=== PATIENT | male | born 1955 | race Caucasian/White ===

== ENCOUNTER → 2022-06-11 | Outpatient (CLI) | payer BC, SELFPAY ==
--- NOTE | 2022-06-11 | IMM_PTH ---
PATIENT: JELENA HARRIS LOC: [facility] U#:[id number] AGE/SX: 66/M ROOM: RE06/11/[address]: Dr. Donaldo Nielsen MD : 1955 BED: DIS: 06/11/2022 SPEC #: [id number] RECD: 06/13/22 14:42 STATUS: SOUJuan REQ #: [id number] JOANA: 06/11/22 00:[address]: Donaldo Nielsen DEPT: IMMUNOHISTOCHEMISTRY RECD BY: Michelle Rudolph ENTERED: 06/13/22 14:43 SP TYPE: IMMUNO OTHR DR: Dr. Chico Franks MD Tissues: A - PROSTATE RIGHT D - PROSTATE LEFT E - PROSTATE LEFT Procedures: 34BE12 (add) P40 (add) 34BE12 (initial) PHYSICIAN & INSTITUTION [place] [address] SPECIMEN INFORMATION: Tissue Source: A - Right prostate, apex, D - Left prostate, apex, E - Left prostate, mid Clinical Info: Elevated PSA Specimen Number: [id number] A, D & E CPT code: 06184, 94779 x5 METHODOLOGY: Deparaffinized sections of prefer/formalin-fixed tissue or PAP/DQ stained slides are incubated with monoclonal/polyclonal antibodies/oligonucleotide probes. Localization is made via biotin free immunoperoxidase method. Appropriate controls are performed and reacted as expected. Results on target cell population are indicated in the following table: RESULTS: ANTIBODY / CLONE RESULT Block A P40 (BC28) positive 34BE12 (34BE12) positive Block D P40 (BC28) positive 34BE12 (34BE12) positive Block E P40 (BC28) negative 34BE12 (34BE12) negative These tests were developed and their performance characteristics determined by [facility]. They may not have been cleared or approved by the U.S. Food and Drug Administration. The FDA has determined that such clearance or approval is not necessary. The above immunohistochemical/dualISH markers are ordered and reviewed by the Pathologist. INTERPRETATION: A. Right prostate, apex, core biopsy: Focal high-grade prostatic intraepithelial neoplasia (HGPIN). D. Left prostate, apex, core biopsy: Focal high-grade prostatic intraepithelial neoplasia (HGPIN). E. Left prostate, mid, core biopsy: Focal atypical small acinar proliferation (LEILANI). SJ:warner 06/14/2022
--- NOTE | 2022-06-11 08:00 | PROSBIL_PTH ---
PATIENT: JELENA HARRIS LOC: [facility] U#:[id number] AGE/SX: 66/M ROOM: RE06/11/[address]: Dr. Donaldo Nielsen MD : 1955 BED: DIS: 06/11/2022 SPEC #: [id number] RECD: 06/11/22 16:11 STATUS: LUIS EDUARDO RELacy #: [id number] JOANA: 06/11/22 08:[address]: Donaldo Nielsen DEPT: SURGICAL PATHOLOGY RECD BY: Laurie Salazar ENTERED: 06/12/22 08:10 SP TYPE: PROST BX JAKY DR: Dr. Chico Franks MD Tissues: A - PROSTATE RIGHT B - PROSTATE RIGHT C - PROSTATE RIGHT D - PROSTATE LEFT E - PROSTATE LEFT F - PROSTATE LEFT Procedures: PROSTATE BX HEADER OPERATION: Prostate biopsy PRE-OP DIAGNOSIS: Elevated PSA TISSUE SUBMITTED: A - Right apex, B - Right mid, C - Right base, D - Left apex, E - Left mid, F - Left base MICROSCOPIC DIAGNOSIS A. Right prostate, apex, core biopsy: Focal high-grade prostatic intraepithelial neoplasia (HGPIN). See comment. B. Right prostate, mid, core biopsy: Prostatic adenocarcinoma. Soumya grade: 3+4=7 Number of cores involved: 1/1 Proportion of tissue involved: ~20% Perineural invasion: Not identified. Greatest tumor length: 1 cm, discontinuous. Focal high-grade prostatic intraepithelial neoplasia (HGPIN). C. Right prostate, base, core biopsy: Prostatic adenocarcinoma. Baudette grade: 3+4=7 Number of cores involved: 1/1 Proportion of tissue involved: 80% Perineural invasion: Present, focal. Greatest tumor length: cm D. Left prostate, apex, core biopsy: Focal high-grade prostatic intraepithelial neoplasia (HGPIN). See comment. E. Left prostate, mid, core biopsy: Focal atypical small acinar proliferation (LEILANI). Focal high-grade prostatic intraepithelial neoplasia (HGPIN). See comment. F. Left prostate, base, core biopsy: Prostatic tissue, negative for malignancy. SJ:warner 06/13/2022 COMMENT A, D & E - Immunohistochemistry ([id number]) supports the above diagnosis. MICROSCOPIC DESCRIPTION Slides are reviewed. GROSS DESCRIPTION A - Received is one container designated prostate, right apex. The specimen consists of one elongated fragment of light recinos-white soft tissue measuring 1.5 cm in length and 0.1 cm in diameter. The specimen is totally submitted in one cassette. B - Received is one container designated prostate, right mid. The specimen consists of one elongated fragment of light recinos-white soft tissue measuring 1.4 cm in length and 0.1 cm in diameter. The specimen is totally submitted in one cassette. C - Received is one container designated prostate, right base. The specimen consists of one elongated fragment of light recinos-white soft tissue measuring 1.3 cm in length and 0.1 cm in diameter. The specimen is totally submitted in one cassette. D - Received is one container designated prostate, left apex. The specimen consists of one elongated fragment of light recinos-white soft tissue measuring 1.1 cm in length and 0.1 cm in diameter. The specimen is totally submitted in one cassette. E - Received is one container designated prostate, left mid. The specimen consists of one elongated fragment of light recinos-white soft tissue measuring 1.3 cm in length and 0.1 cm in diameter. The specimen is totally submitted in one cassette. F - Received is one container designated prostate, left base. The specimen consists of one elongated fragments of light recinos-white soft tissue measuring 1.2 cm in length and 0.1 cm in diameter. The specimen is totally submitted in one cassette. / SJ:rg 06/12/2022 TC:0 [facility]: [id number] x6
== END | disposition home or self-care (01) ==
LOC: LABSPEC 16:33
PROVIDERS: PCP Family Medicine; Referring Provider Urology; Visit Provider Urology
DX: R97.20 Elevated prostate specific antigen [PSA] (principal)
CPT/HCPCS: 88305; 88341; 88342; G0416

== ENCOUNTER → 2022-07-12 | Outpatient (CLI) | payer BC, SELFPAY ==
--- NOTE | 2022-07-12 09:23 | NM_ITS ---
CLINICAL: 66-year-old male with history of primary prostate carcinoma. WHOLE BODY 99m Tc MDP RADIONUCLIDE BONE SCINTIGRAPHY COMPARISON: None available FINDINGS: Following the intravenous administration of 26.3 mCi of 99m Tc MDP, whole body bone images reveal: 1. Increased radiopharmaceutical concentration is defined in the sternoclavicular compartments of both shoulders, the region of the fourth and fifth thoracic vertebra, the knees bilaterally, the right hip involving the superior posterior acetabulum. 2. The remaining skeletal structures are scintigraphically unremarkable with normal-appearing renal images and urinary bladder activity identified. NM/Bone Scan Whole Body IMPRESSION: 1. The increase in radiopharmaceutical concentration defined in the bilateral shoulders, the thoracic spine, both knee articulations and right hip is most consistent with degenerative arthrosis. 2. There is no definitive scintigraphic evidence of diffuse axial skeletal metastatic disease on the current examination. Electronically Signed: Noe Staton, at 11:43 EST ,
== END | disposition home or self-care (01) ==
PROVIDERS: PCP Family Medicine; Visit Provider Urology
DX: C61 Malignant neoplasm of prostate (principal)
CPT/HCPCS: 78306; A9503

== ENCOUNTER 2022-08-28 07:29 | Observation (INO) | payer BC, SELFPAY ==
--- NOTE | 2022-08-20 13:17 | EKG12_ITS ---
Test Reason : PRE OP Blood Pressure : / mmHG Vent. Rate : 067 BPM Atrial Rate : 067 BPM P-R Int : 164 ms QRS Dur : 092 ms QT Int : 382 ms P-R-T Axes : 067 051 071 degrees QTc Int : 403 ms Normal sinus rhythm Normal ECG Confirmed by EARL ALFORD, MARC ([id number]), material expeditor KALLIE MERLOS ([id number]) on 08/21/2022 9:53:02 AM Referred By: OKSANA Confirmed By:MARC ELLIOTT MD
[2022-08-20 14:55] LABS: Hematocrit 43.8 % (40-54); Hemoglobin 14.7 g/dL (13.0-16.5); Mean Corp Hgb Conc 33.6 g/dL (32-36); Mean Corpuscular Hgb 29.3 pg (27.0-32.0); Mean Corpuscular Volume 87.4 fL (80-94); Mean Platelet Vol. 9.3 fl (6.2-12.0); Platelet Count 255 K/mm3 (150-450); RBC Distribution Width SD 41.5 fl (35.1-43.9); Red Blood Count 5.01 M/mm3 (4.6-6.2); White Blood Count 6.2 K/mm3 (4.4-11.0)
[2022-08-28] VITALS (12 sets, daily range): BP systolic 116–137; BP diastolic 66–95; PULSE 63–87; RESP 14–18; TEMP 36.4–37.1; O2SAT 92–99; BMI 29.3; BMI 29.8
[2022-08-28] MEDS: Lactated Ringers 1,000 ML 15 ML IV ×3 (06:49→10:20)
--- NOTE | 2022-08-28 07:30 | PROST_PTH ---
PATIENT: JELENA HARRIS LOC: MS3 U#:[id number] AGE/SX: 66/M ROOM: [facility] [place] RE08/28/[address]: Dr. Donaldo Nielsen MD : 1955 BED: 1 DIS: 08/29/2022 SPEC #: [id number] RECD: 08/28/22 13:46 STATUS: LUIS EDUARDO [place] #: [id number] JOANA: 08/28/22 07:[address]: Donaldo Nielsen DEPT: SURGICAL PATHOLOGY RECD BY: Laurie Salazar ENTERED: 08/28/22 13:48 SP TYPE: PROSTATE OTHR DR: Dr. hCico Franks MD Tissues: A - Lymph node of pelvis, NOS B - Lymph node of pelvis, NOS C - Prostate, NOS Procedures: Surgery Specimen Level V Surgery Specimen Level HEADER OPERATION: Lap robotic radical prostatectomy PRE-OP DIAGNOSIS: Prostate cancer TISSUE SUBMITTED: A ? Left pelvic lymph nodes, B ? Right pelvic lymph nodes, C ? Prostate tissue and contents MICROSCOPIC DIAGNOSIS A. Left pelvic lymph nodes, regional dissection: Two out of two lymph nodes, negative for metastatic carcinoma. B. Right pelvic lymph nodes, regional dissection: Three out of three lymph nodes, negative for metastatic carcinoma. C. Prostate, radical prostatectomy: Prostatic adenocarcinoma. See cancer summary in the comment section. SJ:warner 08/30/2022 COMMENT C. PROSTATE CANCER (RADICAL) SUMMARY: Procedure: Radical Prostatectomy Prostate Size: Weight: 34.4 gm Size: 3.5 cm transversely, 2.5 cm anterior-posteriorly and 3.5 cm craniocaudally Histologic Grade: Grade group 3 (Soumya score 3+4=7) Percent of Pattern 4: ~30% Tumor Quantitation: Estimated percentage of prostate involved by tumor: ~30% Tumor size: Tumor involves both right and left lobes. It is present in discontinuous manner in the left lobe. Tumor is measured microscopically. Tumor in the right lobe measures approximately 2.5 x 2.0 x 1.0 cm and left lobe measures 2.5 x 1.0 x 0.5?cm. Extraprostatic Extension: Not identified Urinary Bladder Neck Invasion: Not identified Seminal Vesicle Invasion: Not identified Lymphvascular Invasion: Not identified Perineural Invasion: Present, focal Margins: Focally involved by invasive carcinoma. Linear length of positive margin: 5 mm Location of positive margin: Left apical [place] pattern at positive margin: 3+3=6 Regional Lymph Nodes: Number of lymph nodes involved by carcinoma: 0 Total number of lymph nodes examined: 5 Treatment Effect: No known presurgical therapy. Additional Pathologic Findings: Focal high-grade prostatic intraepithelial neoplasia (HGPIN). Focal chronic inflammation. Clinical History: Please make reference to previous specimen ([id number]) right prostate mid and base, biopsies with diagnosis of ?adenocarcinoma? and right prostate apex and left prostate apex with diagnosis of ?focal high-grade prostatic intraepithelial neoplasia? and left prostate mid with diagnosis of ?focal atypical small acinar proliferation and focal high-grade prostatic intraepithelial neoplasia.? PATHOLOGIC STAGE: pT2 pN0 pMx The above summary is in compliance with [employer] [place] [employer] (CAP) Cancer Protocols Checklist and [place] [employer] Committee on Cancer (AJCC), Staging Manual, 8th Ed. Case has been reviewed in consultation with Dr. Xavier who concurs with the above diagnosis. IDC:AM MICROSCOPIC DESCRIPTION Slides are reviewed. GROSS DESCRIPTION A - Received in fixative is one container labeled with the patient's name and designated left pelvic lymph nodes. The specimen consists of three variable sized pieces of yellow adipose tissue measuring in aggregate 3.5 x 2.5 x 0.6 cm. Two possible lymph nodes are identified. The entire specimen is submitted in two cassettes as follows: 1 ? two possible lymph nodes, 2 ? rest of the specimen. B - Received in fixative is one container labeled with the patient's name and designated right pelvic lymph nodes. The specimen consists of two variable sized pieces of yellow adipose tissue measuring in aggregate 4.0 x 3.5 x 1.0 cm. Three possible lymph nodes are identified. The entire specimen is submitted in two cassettes. Cassette 1 also contains the possible lymph nodes. C - Received in fixative is one container labeled with the patient's name and designated prostate tissue and contents. The specimen consists of a radical prostatectomy specimen consisting of prostate and bilateral seminal vesicles and vas deferens. The specimen weighs 34.4 gm. The prostate measures 3.5 cm transversely, 2.5 cm anterior-posteriorly and 3.5 cm craniocaudally. The right seminal vesicle measures 3.0 x 1.5 x 0.5 cm and right vas deferens measures 2.0 cm in length and 0.5 cm in diameter. The left seminal vesicle measures 3.5 x 1.5 x 0.5 cm and the left vas deferens measures 1.5 cm in length and 0.5 cm in diameter. The prostate is inked as follows: anterior surface - yellow, posterior surface - black, right lateral surface - blue, left lateral surface - green. The bilateral seminal vesicles and vas deferens are inked as follows: Posterior surface bilateral seminal vesicle and vas deferens - black, anterior surface right seminal vesicle and vas deferens - blue and anterior left seminal vesicle and vas deferens - green. Sections do not reveal any well-defined mass lesions. Puppy Sitter sections are submitted in 19 cassettes as follows: 1 - right seminal vesicle and vas deferens, 2 - left seminal vesicle and vas deferens, 3 - apical (urethral) margin, enface, 4 & 5 ? bladder neck and basal portion of prostate margin, enface, 6-9 - apical portion prostate, 10-13 - middle portion prostate, 14-19 - basal portion prostate. More than 95% of the prostate is submitted. / SJ:warner 08/29/2022 TC:0 CPT: 91781, 26940 x2
--- NOTE | 2022-08-28 07:32 | DCINST_ITS ---
Discharge Instructions Diet Discharge Diet: No restrictions, Light diet - advance as tolerated and Soft diet Activity Discharge Activity: May Shower Return to work on:: 10/09/22 May shower in (days): 1 Lifting Restrictions: No lifting over 10 pounds for 6 weeks no heavy activity no straining Dressing / Incision Call your doctor if your incision/area has: Continuous Slow Oozing, Sudden Increased Bleeding and Increased Redness Call your doctor if you observe: Fever of 101 or Higher and Inability to have a bowel movement Cleanse incision/area with: Soap & Water Catheter: Tuttle to leg bag and Tuttle to large bag Drain: [place] Follow Up Care Please Follow Up With: Donaldo Nielsen MD When: Two weeks for an appt to remove tuttle. Test Results: Test results from this visit will be discussed in further detail at your follow- up appointment, if applicable. Discharge Plan Admission Primary Reason for Your Visit: Prostate cancer Attending Provider: Donaldo Nielsen Primary Care Provider: Chico Franks Instructions Patient Instructions: Radical Prostatectomy Dc Discharge Orders/Prescriptions Prescriptions: New ciprofloxacin HCl [Cipro] 500 mg tablet 500 mg PO BID Qty: 20 0RF docusate sodium [Colace] 100 mg capsule 100 mg PO BID Qty: 20 0RF oxycodone-acetaminophen [Endocet] 5-325 mg tablet 1 tab PO Q6H PRN (Reason: pain) 7 Days Qty: 14 0RF Held cranberry 500 mg Capsule 500 mg PO DAILY Hold Instructions: Resume on 09/11/22. Rx Instructions: administer with meals Referrals / Follow Up: Donaldo Nielsen MD [Med Staff - Active Staff] - Chico Franks MD [Primary Care Provider] - Disposition Disposition (needs filled in before D/C Order can be placed): Home, Self Care
--- NOTE | 2022-08-28 07:32 | PCM.HP.STD ---
HPI - General General Chief Complaint: Prostate cancer HPI Narrative JELENA HARRIS, is a 66 M who presents for radical robotic prostatectomy bilateral nerve sparing PFSH Medical History (Updated 08/28/22 @ 07:[address] Donaldo Nielsen MD) Gastric reflux Non-smoker Wears glasses Home Medications cranberry 500 mg capsule 500 mg PO DAILY 08/15/22 [History Last Taken 08/27/22] ciprofloxacin HCl 500 mg tablet (Cipro) 500 mg PO BID #20 tabs 08/28/22 [Rx Last Taken Unknown] docusate sodium 100 mg capsule (Colace) 100 mg PO BID #20 caps 08/28/22 [Rx Last Taken Unknown] oxycodone-acetaminophen 5 mg-325 mg tablet (Endocet) 1 tab PO Q6H PRN pain 7 days #14 tabs 08/28/22 [Rx Last Taken Unknown] Allergy/AdvReac Type Severity Reaction Status Date / Time No Known Allergies Allergy Verified 08/15/22 10:20 Surgical History (Updated 08/15/22 @ 10:28 by Nevaeh Carreon) Hx of appendectomy Social History Smoking Status: Never smoker Vital Signs Vital Signs Vital Signs: 08/28/22 06:34 08/28/22 06:34 Temperature 98.4 F Temperature Source Temporal Pulse Rate 73 Respiratory Rate 16 Respiratory Pattern Normal Blood Pressure 117/95 H Blood Pressure Mean 102 Blood Pressure Source Monitor Blood Pressure Position Semi-Fowlers Blood Pressure Location Right Arm Pulse Ox 95 Oxygen Delivery Method Room Air Weight Weight: 101 kg Body Mass Index (BMI) 29.3 Results Lab / Micro Data Result Diagrams: 08/20/22 13:29
[2022-08-28] MEDS: Cefazolin 2 GM in 0.9% Normal Saline 100 ML IV (07:39)
--- NOTE | 2022-08-28 10:40 | OP.PCM_ITS ---
Report of Operation Date of Procedure: 08/28/22 Pre-Operative Diagnosis: Prostate cancer Post-Operative Diagnosis: The same Surgery/Procedure Performed:: Laparoscopic robotic assisted radical prostatectomy with bilateral nerve sparing, bilateral pelvic lymph node dissection Description of Surgical Findings:: This is a 66-year-old male with history of prostate cancer was diagnosed he is underwent evaluation and we counseled him with the options of treatment we discussed the options of observation and active surveillance radiation treatments and also robotic radical prostatectomy with the approach with the robot we discussed the side effects could be bladder control problems and incontinence and also the potential to have erectile dysfunction and ED. Patient elected to have a radical prostatectomy for curative intent he understands is always possible he may need more treatment afterwards Patient was taken back to the operating room at a smooth induction of general anesthesia he was placed in dorsolithotomy position. The penis and testicles and lower abdomen was prepped and draped in usual sterile fashion we placed a 18 [place] catheter into the bladder I then made an incision above the umbilicus and placed a Veress needle into the peritoneal cavity and insufflated the peritoneal cavity with CO2 gas placed the camera trocar right arm trocar left arm trocar and second left arm trocar. Air seal port and suction port the robot was then docked we then proceeded by first releasing some old scar tissue from a prior appendectomy in the right lower quadrant I then mobilized the colon off the lateral sidewall I then was able to retract the colon sigmoid colon out of the pelvis we then went below the prostate below the space of Retzius and opened up the peritoneum over the seminal vesicles and vas deferens I dissected dissected out the seminal vesicle and vas deferens and then teased the levator fascia and in the Denonvilliers' fascia off the posterior aspect of the prostate all the way to the apex. Then we pulled out of the pelvis the bladder was dropped and we created the space of Retzius we put the bladder on traction with the fourth arm I then went to the pelvic sidewall on the right pelvic sidewall we dissected out the lymph node dissection with a completely lymph node dissection taking lymph nodes off the iliac and and renal vein down to the four slide machine operator space down to the obturator nerve we used the vessel sealer during this process and then these lymph nodes were handed off as a specimen we went to the left side and again we did a complete lymph node dissection the left side dissect the lymph nodes off the iliac artery and vein off the lateral pelvic sidewall down to the four slide machine operator nerve and then came back this all the blood vessels were controlled using the vessel sealer. After the lymph nodes were dissected out of note the lymph nodes did appear negative grossly. I then went to the prostate we incised the endopelvic fascia in the right and left side dissected up to the apex we circumferentially dissected the dorsal vein complex I then placed the stitch around the dorsal vein complex to control the dorsal vein complex and then once the dorsal vein complex was controlled I pulled back to the junction between the bladder and the prostate dissected between the bladder and prostate with electrocautery down until we reached the catheter and then dissected between the bladder and prostate past the catheter posteriorly into reach to have the vesicles vas deferens which were already been dissected out the prostate was then placed in lateral traction on the right side we incised the endopelvic fascia over the prostate we then swept the neurovascular bundle off the prostate posteriorly and worked our way towards the pedicle the pedicle that was then controlled using the vessel sealer and then one-sided the pedicles controlled and I was able to free and released the neurovascular bundle off the right side all the way to the apex and a perfect fashion and it came off very nicely. The re we went up to the left side the endopelvic fascia over the prostate was were dissected off the prostate we then teased this very carefully off the prostate and the left side we rolled the neurovascular bundle off the left side and then we came back we identified the pedicle and then the pedicle was taken using the vessel sealer and then once a vessel sealer was then taken the vascular pedicle of the prostate then we freed up the neurovascular bundle on on the left side all the way to the apex of the prostate we then transected through the dorsal vein complex that had been very suture-ligated I then transected through the urethra the prostate was then free and was placed in Endo Catch bag there was no bleeding at this point and then we created the anastomosis between the bladder opening and the urethra we used a 3 oh V-Loc stitch to arm suture running from 6:00 to 12:00 in a continuous fashion over the catheter a new catheter was put in we irrigated there was no leakage from the new anastomosis we then undocked the robot we extracted the prostate through the umbilicus we closed the umbilicus with 2 [id number] 0 Vicryl stitches and when the robot was undocked then we flushed the catheter a new catheter was put in and then we flushed the catheter patient's anesthetic is being reversed blood loss was only about 50 cc urine output was not recorded the patient is currently being reversed from anesthesia in stable condition and being taken back to PACU.. Surgeon: Donaldo Nielsen Type of Anesthesia: General Estimated Blood Loss (mL): 50 Admit VTE Documentation VTE Present on Admission: No VTE Mechan Device Prophylaxis: SCD's VTE Pharm Prophylaxis ordered?: No
[2022-08-28] MEDS: Docusate Sodium 100 MG Capsule 200 MG PO ×2 (12:54→21:46)
[2022-08-28] MEDS: Ketorolac 15 MG/ML Vial IV ×2 (12:54→17:55)
[2022-08-28] MEDS: 0.9% Normal Saline 1,000 ML 125 ML IV (13:01)
[2022-08-28] MEDS: Ciprofloxacin 400 MG/200 ML BAG 200 MG IV (14:53)
[2022-08-28] MEDS: 0.9% Saline Lock 10 ML Syringe IV (17:56)
[2022-08-29] MEDS: Ketorolac 15 MG/ML Vial IV ×3 (01:37→12:02)
[2022-08-29] MEDS: Ciprofloxacin 400 MG/200 ML BAG 200 MG IV (01:37)
[2022-08-29] MEDS: 0.9% Saline Lock 10 ML Syringe IV ×3 (01:38→12:02)
[2022-08-29 02:00] VITALS: BP 128/65; PULSE 74; RESP 18; TEMP 37.2; O2SAT 93
[2022-08-29 09:02] VITALS: BP 120/64; PULSE 78; RESP 18; TEMP 36.6; O2SAT 97
[2022-08-29] MEDS: Docusate Sodium 100 MG Capsule 200 MG PO (09:37)
--- NOTE | 2022-08-29 10:00 | NURSING ---
was doing d/c teaching with pt and and became diaphoretic and went over and sat in chair and said she needed more oxygen- pt was on room air- sats at 98 pulse 50 bp obtained and was 86/34 and fell to 78/28- pt denied nausea previously but states she was nauseated- rapid response called and pt was taken to er for evaluation- aware and know we will give update when we have one
--- NOTE | 2022-08-29 10:04 | CASEMGMT ---
DAVY CM in to discuss ZIMMERMAN form with patient. RN CM explained ZIMMERMAN form, patient voiced understanding. Pt signed form and filed in chart. Pt provided with a copy of signed ZIMMERMAN form. Patient had no further questions or concerns at this time.
[2022-08-29 16:12] VITALS: BP 147/96; PULSE 79; RESP 16; TEMP 36.6; O2SAT 96
== END 2022-08-29 16:25 | disposition home or self-care (01) ==
LOC: SDC 11:22 → MS3 11:22
PROVIDERS: Anesthesiology; Admitting Provider Urology; PCP Family Medicine; Referring Provider Urology; Visit Provider Urology
PROC: 0VT04ZZ Resection of Prostate, Percutaneous Endoscopic Approach (ICD-10-PCS; CPT 55866; principal; 2022-08-28 07:10)
DX: C61 Malignant neoplasm of prostate (principal); K21.9 Gastro-esophageal reflux disease without esophagitis; R97.20 Elevated prostate specific antigen [PSA]; R35.0 Frequency of micturition
CPT/HCPCS: 55866; 00865; 36415; 85027; 86850; 86900; 86901; 88307; 88309; 93005; 94668; 96361; 96365; 96366; 96375; 96376; 99221; 99252; J7030; J7120; A4216; G0378; G0463; J0744; J2405

== ENCOUNTER → 2022-11-07 | Outpatient (CLI) | payer BC, MEDICARE, SELFPAY ==
[2022-11-07 17:31] LABS: PSA,Total- Diagnostic < 0.01 ng/mL (0.0-4.0)
== END | disposition home or self-care (01) ==
LOC: LAB 16:24
PROVIDERS: PCP Family Medicine; Visit Provider Urology
DX: C61 Malignant neoplasm of prostate (principal)
CPT/HCPCS: 36415; 84153

== ENCOUNTER → 2023-03-17 | Outpatient (CLI) | payer MEDICARE, BC, SELFPAY ==
[2023-03-17 17:25] LABS: PSA,Total- Diagnostic < 0.01 ng/mL (0.0-4.0)
== END | disposition home or self-care (01) ==
PROVIDERS: PCP Family Medicine; Referring Provider Urology; Visit Provider Urology
DX: C61 Malignant neoplasm of prostate (principal)
CPT/HCPCS: 36415; 84153

== ENCOUNTER → 2023-10-02 | Outpatient (CLI) | payer MEDICARE, BC, SELFPAY ==
[2023-10-02 18:48] LABS: PSA,Total- Diagnostic < 0.01 ng/mL (0.0-4.0)
== END | disposition home or self-care (01) ==
LOC: LAB 16:28
PROVIDERS: PCP Family Medicine; Referring Provider Nurse Practitioner; Visit Provider Nurse Practitioner
DX: C61 Malignant neoplasm of prostate (principal)
CPT/HCPCS: 36415; 84153

== ENCOUNTER → 2024-04-29 | Outpatient (CLI) | payer MEDICARE, BC, SELFPAY ==
[2024-04-29 17:04] LABS: PSA,Total- Diagnostic < 0.01 ng/mL (0.0-4.0)
== END | disposition home or self-care (01) ==
LOC: LAB 16:16
PROVIDERS: PCP Family Medicine; Referring Provider Nurse Practitioner; Visit Provider Nurse Practitioner
DX: C61 Malignant neoplasm of prostate (principal)
CPT/HCPCS: 36415; 84153

== ENCOUNTER → 2024-11-02 | Outpatient (CLI) | payer MEDICARE, BC, SELFPAY ==
[2024-11-02 18:01] LABS: PSA,Total- Diagnostic < 0.02 ng/mL (0.00-4.00)
== END | disposition home or self-care (01) ==
LOC: LAB 16:07
PROVIDERS: PCP Family Medicine; Referring Provider Urology; Visit Provider Urology
DX: C61 Malignant neoplasm of prostate (principal)
CPT/HCPCS: 36415; 84153

== ENCOUNTER → 2025-05-09 | Outpatient (CLI) | payer MEDICARE, BC, SELFPAY ==
[2025-05-09 17:45] LABS: PSA,Total - Annual Screen < 0.02 ng/mL (0.02-4.00)
--- OUTSIDE RECORDS SUMMARY | 2025-05-09 19:59 | XMS RPT_ITS | CCD ---
Author Organization [facility] CliniSywy Care Team Providers Care Utility Agent Name Role Phone CURTIS BROOKS CNP Admitting Unavailable CURTIS BROOKS CNP Attending Unavailable CURTIS BROOKS CNP Primary Care Unavailable LAURA CHAO MD Consulting Unavailable PROVIDER, UNKNOWN Consulting Unavailable PROVIDER, UNKNOWN Consulting Unavailable PROVIDER, UNKNOWN Consulting Unavailable Dr. Samreen Chao Primary Care Provider Dr. Keshav Cadena Attending Provider Dr. Donaldo Nielsen Referring Provider SAMREEN CHAO MD Unavailable Donaldo Nielsen Unavailable Unavailable DEANGELO HERNANDEZ Unavailable Unavailable ALEJANDRA ALFORD, YADY Clark Unavailable [phone] Geovanny RN, Disha Unavailable Unavaila lilian Salmon RN, Sumaya Unavailable Unavailable Unavailable Unavailable Golden ALFORD, Dr. Golden Primary Care Provider Morales ALFORD, Dr. Donaldo Bruner Attending Provider [phone] Morales ALFORD, Dr. Donaldo Bruner Referring Provider Samreen Chao Primary Care Unavailable Donaldo Nielsen Referring Unavailable Donaldo Nielsen Attending Unavailable OntonagonSonal Attending Unavailable Sonal Quiros Referring Unavailable Samreen Chao Primary Care Unavailable Medications Current Medications Medication Drug Class(es) Dates Sig (Normalized) Sig (Original) acetaminophen 325 mg / oxyCODONE hydrochloride 5 mg oral tablet (5 sources) Opioid Agonist Start: 08-28-2022 take 1 tablet by mouth every six hours as needed for pain Oxycodone-Acetamin ophen (Endocet) 5-325 mg tablet Active 1 {tbl} PO EVERY 6 HOURS as needed for pain 14 7 August 28, 2022 ciprofloxacin 500 mg oral tablet (5 sources) Quinolone Antimicrobial Start: 08-28-2022 take 1 tablet by mouth twice daily Ciprofloxacin Hcl (Cipro) 500 mg tablet Active 500 mg PO TWICE A DAY August 28, 2022 12:00am Cranberry (5 sources) Non-Standardized Food Allergenic Extract, Non-Standardized Plant Allergenic Extract Start: 08-15-2022 take 1 capsule by mouth once daily at mealtime Cranberry 500 mg Capsule Active 500 mg PO DAILY August 15, 2022 1:00am On Hold: Resume on 09/11/22. administer with meals Start: 08-15-2022 take 500 mg by mouth once daily at mealtime Cranberry Active 500 MG PO DAILY August 15, 2022 1:00am administer with meals docusate sodium 100 mg oral capsule (5 sources) Start: 08-28-2022 take 1 capsule by mouth twice daily Docusate Sodium (Colace) 100 mg capsule Active 100 mg PO TWICE A DAY August 28, 2022 12:00am Completed/Discontinued Medications Medication Drug Class(es) Dates Sig (Normalized) Sig (Original) meclizine hydrochloride 25 mg oral tablet (6 sources) Antiemetic Start: 06-17-2016 End: 06-24-2016 take 1 tablet by mouth three times daily as needed Meclizine HCl 25 MG Oral Tablet ; 1 (one) tablet tablet three times a day, as needed for 7 days Quantity: 21 {Tablet} Refills: 0 Ordered: 24-Jun-2016 DAVY Small Start: 17-Jun-2016 End: 24-Jun-2016 Status: Inactive Comments: Medication taken as needed. Comment on above: Medication taken as needed. ondansetron 4 mg disintegrating oral tablet (6 sources) Serotonin-3 Receptor Antagonist Start: 06-21-2016 End: 03-21-2022 take 1 tablet by mouth every eight hours as needed Zofran ODT 4 MG Oral Tablet Dispersible ; 1 (one) Tablet Disperse Tablet Disperse every eight hours, as needed for 0 days Quantity: 6 {Tablet} Refills: 0 Ordered: 21-Jun-2016 DAVY Small Start: 21-Jun-2016 End: 21-Mar-2022 Status: Discontinued Comments: Medication taken as needed. This order discontinued per [facility]. Comment on above: Medication taken as needed. This order discontinued per -[facility]. Problems Active Problems Problem Classification Problem Date Documented Date Episodic/Chronic Abdominal pain (12 sources) Acute abdominal pain; Translations: [Unspecified abdominal pain] 06-24-2016 Episodic Biliary tract disease (18 sources) Biliary calculus; Translations: [Calculus of gallbladder without cholecystitis without obstruction] Onset: 06-26-2016 07-01-2016 Episodic Cancer of prostate (6 sources) Malignant tumor of prostate; Translations: [Malignant neoplasm of prostate] Onset: 11-08-2024 08-28-2022 Chronic Conditions associated with dizziness or vertigo (6 sources) Lightheadedness; Translations: [Dizziness and giddiness] 06-17-2016 Episodic Conditions associated with dizziness or vertigo (6 sources) Conditions associated with dizziness or vertigo 06-17-2016 Disorders of lipid metabolism (12 sources) Hyperlipidemia; Translations: [Hyperlipidemia, unspecified] 01-05-2013 Chronic Esophageal disorders (12 sources) Gastroesophageal reflux disease; Translations: [Gastro-esophageal reflux disease without esophagitis] 06-17-2016 Chronic Immunizations and screening for infectious disease (6 sources) Requires diphtheria, tetanus and pertussis vaccination; Translations: [Encounter for immunization] 11-15-2011 Episodic Nausea and vomiting (18 sources) Nausea; Translations: [Nausea] 06-24-2016 Episodic Comment on above: Intermittent. Other liver diseases (6 sources) Fatty (change of) liver, not elsewhere classified; Translations: [Other chronic nonalcoholic liver disease] Onset: 06-26-2016 06-27-2016 Chronic Comment on above: on [place] Other nutritional; endocrine; and metabolic disorders (12 sources) Overweight; Translations: [Overweight] 01-01-2013 Episodic Other screening for suspected conditions (not mental disorders or infectious disease) (20 sources) Raised prostate specific antigen; Translations: [Elevated prostate specific antigen [PSA]] 04-02-2022 Episodic Other skin disorders (6 sources) Actinic keratosis; Translations: [Actinic keratosis] 11-15-2011 Episodic Unclassified (6 sources) !Patient notification of lab results - Dr. Chao. The test(s) that you had done were/was a CBC (checks for anemia and infection), a CMP (kidneys, liver, nutrition, sugar), a lipid panel (cholesterol and triglycerides) and a PSA (blood test for prostate cancer). Your tests showed the following abnormalities: high cholesterol and mildly elevated PSA . (I think you can improve your cholesterol with a healthy diet and weight loss. Stay active. Your PSA was slightly elevated (8). Given your symptoms, I think it would be reasonable to see a urologist. Let us know if you would like a referral to one) You should call our office if you have any questions. 03-25-2022 Past or Other Problems Problem Classification Problem Date Documented Da te Episodic/Chronic Unclassified (6 sources) Physical examination - The patient is here for a annual physical. The patient reports that immunizations are up to date (last tetanus 2011) and denies tobacco use. 03-21-2022 Unclassified (6 sources) !Patient notification of lab results - Chao. The test(s) that you had done were/was a CT scan. The results of your testing were normal . Please let us know if your symptoms do not improve (call the office if you are still having nausea or other symptoms). 07-04-2016 Unclassified (6 sources) !Patient notification of lab results - Chao. The test(s) that you had done were/was an ultrasound exam. Your tests showed the following abnormalities: there are kidney stones and a gallstone, but they may or may not be the cause of your symptoms . You should call our office to schedule an appointment for additional testing (recommend a CT scan of the abdomen/pelvis with contrast for further evaluation). 06-27-2016 Unclassified (6 sources) !Patient notification of lab results - Chao. The test(s) that you had done were/was blood work. The results of your testing were normal (await results of ultrasound testing) . 06-25-2016 Unclassified (6 sources) recheck - pain (abd pain and nausea. Had 2nd episode 06-21-16. ). Note for recheck: pt wants testing done. c/o fatigue.. 06-24-2016 Unclassified (6 sources) !Patient notification of lab results 1 - . The test(s) that you had done were/was an A1C (three month sugar average), a CMP (kidneys, liver, nutrition, sugar), a lipid panel (cholesterol and triglycerides), a PSA (blood test for prostate cancer) and a TSH (thyroid). Your tests showed the following abnormalities: mildly elevated cholesterol . Please adjust your therapy by losing about 15 lbs which will improve your cholesterol and review the enclosed special instruction sheet(s) on cholesterol. Please note that we have included copies of your results, continue your current medication/therapy and follow up as scheduled. 01-05-2013 Unclassified (6 sources) Physical examination - The patient is here for a annual physical. Note for Physical examination: wants cholesterol checked. 01-01-2013 Unclassified (6 sources) Physical examination - The patient is here for a annual physical. Note for Physical examination: no complaints. 11-15-2011 Results Test Name Value Interpretation Reference Range Facility PSA,Total- Diagnosticon - PSA, DIAGNOSTIC < 0.02 Normal 0.00-4.00 [facility]; [facility] Work Phone: Comment on above: Result Comment: This test was performed using the [employer] tPSA method. Measured values of a patient??sample can vary depending on the testing procedure used. PSA values determined on patient samples by different testing procedures cannot be used interchangeably. If there is a change in PSA assays while monitoring therapy, sequential testing should be performed to confirm baseline values. Performed By: #### L [id number] #### [facility] [address] [place], [place], [id number] PSA,Total- Diagnosticon 04-10 PSA, DIAGNOSTIC < 0.01 Normal 0.0-4.0 [facility]; [facility] Work Phone: Comment on above: Result Comment: This test was performed using the TPSA assay method for the [employer] system. Values obtained with different assay methods cannot be used interchangably. When changing PSA assays in the course of monitoring a patient, additional sequential testing should be carried out to confirm baseline values. Performed By: #### L [id number] #### [facility] [address] [place], [address] Basophil percentageOrdered B y: Sonal Quiros on 10-02-2023 Basophil percentage < 0.01 ng/mL 0.0-4.0 [facility] Comment on above: This test was perfor med using the TPSA assay method for the[employer]ension chemistry system. Values obtained with differentassay methods cannot be used interchangably.When changing PSA assays in the course of monitoring apatient, additional sequential testing should be carriedout to confirm baseline values. No Panel Informationon 10-01 PSA, DIAGNOSTIC < 0.01 Normal 0.0 - 4.0 ng/mL [facility].; [employer] [facility] [employer] [facility] Work Phone: No Panel InformationOrdered By: Donaldo Nielsen on 03-17-2023 Prostate Specific Antigen Total < 0.01 ng/mL 0.0-4.0 [facility] Comment on above: This test was perfor med using the TPSA assay method for theDimension chemistry system. Values obtained with differentassay methods cannot be used interchangably.When changing PSA assays in the course of monitoring apatient, additional sequential testing should be carriedout to confirm baseline values. No Panel Informationon 03-17 PSA, DIAGNOSTIC < 0.01 Normal 0.0 - 4.0 ng/mL [facility].; [employer] [facility] [employer] [facility] Work Phone: No Panel InformationOrdered By: Dr. Nielsen on 11-07-2022 Prostate Specific Antigen Total < 0.01 ng/mL 0.0-4.0 [facility] Comment on above: This test was perfor med using the TPSA assay method for theDimension chemistry system. Values obtained with differentassay methods cannot be used interchangably.When changing PSA assays in the course of monitoring apatient, additional sequential testing should be carriedout to confirm baseline values. No Panel Informationon 11-07 PSA, DIAGNOSTIC < 0.01 Normal 0.0 - 4.0 ng/mL [facility].; [facility] [employer] Work Phone: No Panel Informationon 08-28 Surgery Specimen Level V See Note Normal [facility] [employer] [facility] [employer].; [facility] Work Phone: Automated blood hematocrit ( percentage)Ordered By: Dr. Wilson on 08-20-2022 Hematocrit (Bld) [Volume fraction] 43.8 % Normal 40 - 54 [facility] Basophil percentageOrdered B y: Dr. Wilson on 08-20-2022 WBC (Bld) [#/Vol] 6.2 10*3/uL Normal 4.4 - 11.0 K/mm3 [facility] Blood erythrocytes count (nu mber/volume)Ordered By: Dr. Wilson on 08-20-2022 RBC (Bld) [#/Vol] 5.01 10*6/uL Normal 4.6 - 6.2 {M/mm3} [facility] Blood hemoglobin measurement (mass/volume)Ordered By: Dr. Wilson on 08-20-2022 Hemoglobin (Bld) [Mass/Vol] 14.7 g/dL Normal 13.0 - 16.5 g/dL [facility] Blood platelet mean volumeOr dered By: Dr. Wilson on 08-20-2022 Platelet mean volume (Bld) [Entitic vol] 9.3 fL Normal 6.2 - 12.0 fL [facility] Determination of erythrocyte mean corpuscular volume (MCV)Ordered By: Dr. Wilson on 08-20-2022 MCV (RBC) [Entitic vol] 87.4 fL Normal 80 - 94 fL [facility] Laboratory - Blood bankon ABO and Rh group Nom (Bld) Blood group B Rh(D) negative Normal [facility]; [facility] Work Phone: Laboratory - Hematology and Cell countsOrdered By: Dr. Wilson on 08-20-2022 Erythrocyte distribution width (RBC) [Entitic vol] 41.5 fL 35.1-43.9 [facility] Erythrocyte distribution width (RBC) [Ratio] 13.0 % Normal 11.6 - 14.6 [facility] MCH (RBC) [Entitic mass] 29.3 pg Normal 27.0 - 32.0 pg [facility] MCHC [Mass/volume] by Automa kalen countOrdered By: Dr. Wilson on 08-20-2022 MCHC (RBC) [Mass/Vol] 33.6 g/dL Normal 32 - 36 g/dL [facility] No Panel Informationon 08-20 Ab SCREEN GEL Negative Normal [facility], [employer].; [facility] Work Phone: RDW SD 41.5 fL Normal 35.1 - 43.9 fL [facility], [facility].; [facility] Work Phone: Platelets bldOrdered By: Dr. Wilson on 08-20-2022 Platelets (Bld) [#/Vol] 255 10*3/uL Normal 150 - 450 K/mm3 [facility] No Panel Informationon 06-14 [id number] (initial) See Note Normal [facility].; [facility] Work Phone: No Panel Informationon 06-11 PROSTATE BX See Note Normal [facility], [facility].; [facility] Work Phone: Laboratory - Chemistry and C hemistry - challengeon 03-21-2022 Albumin [Mass/Vol] 1.4 g/dL Normal 0.9 - 1.6 [facility], [facility].; [facility] Albumin [Mass/Vol] 4.1 g/dL Normal 3.4 - 5.0 g/dL [facility], [facility].; [facility] ALT [Catalytic activity/Vol] 27 U/L Normal 16 - 63 U/L [facility], [facility].; [facility] Anion gap [Moles/Vol] 10 mmol/L Normal 10 - 2 0 mmol/L [facility], [facility].; [facility] AST [Catalytic activity/Vol] 17 U/L Normal 15 - 37 U/L [facility], [facility].; [facility] Bilirubin [Mass/Vol] 0.6 mg/dL Normal 0.2 - 1 .0 mg/dL [facility]; [facility] Calcium [Mass/Vol] 9.0 mg/dL Normal 8.5 - 10. 1 mg/dL [facility].; [facility] Chloride [Moles/Vol] 106 mmol/L Normal 98 - 10 7 mmol/L [facility].; [facility] Cholesterol [Mass/Vol] 265 mg/dL Abnormal 0 - 240 mg/dL [facility].; [facility]. Cholesterol in HDL [Mass or moles/Vol] 72 mg/dL Abnormal 40 - 60 mg/dL [facility]; [facility], [facility] Cholesterol in LDL [Mass/Vol] 177 mg/dL Abnormal 0 - 129 mg/dL [facility].; [facility], [facility] Cholesterol.total/Libra sterol in HDL [Mass ratio] 3.7 {ratio} Normal 0.0 - 5.0 [facility]; [facility], [facility] CO2 [Moles/Vol] 31.6 mmol/L Normal 21.0 - 32.0 mmol/L [facility]; [facility], [facility] Creatinine [Mass/Vol] 0.97 mg/dL Normal 0.70 - 1.30 mg/dL [facility].; [facility], [facility]. GFR/1.73 sq M.predicted among blacks MDRD (S/P/Bld) [Vol rate/Area] mL/min/{1.73_m2} Normal 60 - 999 {ML/MINUTE} [facility].; [facility], [facility]. GFR/1.73 sq M.predicted MDRD (S/P/Bld) [Vol rate/Area] mL/min/{1.73_m2} Normal 60 - 999 {ML/MINUTE} [facility].; [facility], [facility] Globulin (S) [Mass/Vol] 3.0 g/dL Normal 1.5 - 3.8 g/dL [facility]; [facility] Glucose [Mass/Vol] 91 mg/dL Normal 74 - 106 mg/dL [facility]; [facility], [facility] Lipid 1996 panel Normal [facility]; [facility] Potassium [Moles/Vol] 5.0 mmol/L Normal 3.5 - 5.1 mmol/L [facility]; [facility] Prostate specific Ag [Mass/Vol] 8.57 ng/mL Abnormal 0.00 - 4.00 ng/mL [facility]; [facility] Protein [Mass/Vol] 7.1 g/dL Normal 6.4 - 8.2 g/dL [facility]; [facility] Sodium [Moles/Vol] 143 mmol/L Normal 136 - 145 mmol/L [facility]; [facility] Triglyceride [Mass/Vol] 78 mg/dL Normal 0 - 150 mg/d L [facility]; [facility] Urea nitrogen [Mass/Vol] 18 mg/dL Normal 7 - 18 mg/dL [facility]; [facility], [facility] Urea nitrogen/Creatinine [Mass ratio] 19 {ratio} Normal 0 - 30 {ratio} [facility]; [facility] Laboratory - Hematology and Cell countson 03-21-2022 Basophils (Bld) [#/Vol] 0.00 {x10EE3/UL} Normal 0.00 - 0.10 {x10EE3/UL} [facility]; [facility], [facility] Basophils/100 WBC (Bld) 0.5 % Normal 0.0 - 2.0 % [facility]; [facility], [facility] Eosinophils (Bld) [#/Vol] 0.10 {x10EE3/UL} Normal 0.00 - 0.50 {x10EE3/UL} [facility].; [facility] Eosinophils/100 WBC (Bld) 1.6 % Normal 0.0 - 7.0 % [facility].; [facility], [facility] Erythrocyte distribution width (RBC) [Ratio] 14.3 % Normal 12.0 - 15.6 % [facility].; [facility], [facility] Hematocrit (Bld) [Volume fraction] 45.3 % Normal 40.0 - 52.0 % [facility].; [facility], [facility] Hemoglobin (Bld) [Mass/Vol] 15.0 g/dL Normal 13.0 - 17.5 g/dL [facility].; [facility], [facility] Lymphocytes (Bld) [#/Vol] 1.80 {x10EE3/UL} Normal 0.80 - 2.80 {x10EE3/UL} [facility].; [facility], [facility] Lymphocytes/100 WBC (Bld) 26.6 % Normal 20.0 - 45.0 % [facility].; [facility], [facility]. MCH (RBC) [Entitic mass] 29 pg Normal 27 - 33 pg [facility].; [facility], [facility]. MCHC (RBC) [Mass/Vol] 33 {X10_3} Normal 32 - 3 6 {X10_3} [facility].; [facility], [facility]. MCV (RBC) [Entitic vol] 88 fL Normal 81 - [address] [facility]; [facility], [facility] Monocytes (Bld) [#/Vol] 0.50 {x10EE3/UL} Normal 0.20 - 1.00 {x10EE3/UL} [facility], [facility].; [facility], [facility] Monocytes/100 WBC (Bld) 7.0 % Normal 0.0 - 10.0 % [facility].; [facility], [facility]. Morphology Alec (Bld) [Interp] N/A Normal [facility].; [facility], [facility]. Neutrophils (Bld) [#/Vol] 4.30 {x10EE3/UL} Normal 1.50 - 7.10 {x10EE3/UL} [facility], [facility].; [facility] Neutrophils/100 WBC (Bld) 64.3 % Normal 46.0 - 76.0 % [facility].; [facility] Platelet mean volume (Bld) [Entitic vol] 7.5 fL Normal 6.4 - 10.5 fL [facility], [facility].; [facility], [facility]. Platelets (Bld) [#/Vol] 283 {x10EE3/UL} Normal 1 50 - 450 {x10EE3/UL} [facility], [facility].; [facility] RBC (Bld) [#/Vol] 5.16 {x_10EE6/UL} Normal 4.50 - 6.00 {x_10EE6/UL} [facility] [employer] [facility], [facility].; [facility], [facility]. WBC (Bld) [#/Vol] 6.7 {x_10EE3/UL} Normal 4.5 - 10.8 {x_10EE3/UL} [facility] [employer] [facility], [employer].; [facility] [employer] [facility], [facility]. No Panel Informationon 03-21 AGE 66 {years} Normal [facility].; [facility] [employer] [facility], [employer] ALK PHOS 81 U/L Normal 46 - 116 U/L [facility].; [facility] [employer] [facility] CBC + DIFF Normal [facility] [employer] [facility].; [facility] [employer] [facility] CMP with eGFR Normal [facility] [facility].; [facility] [employer] [facility], [employer] MANUAL DIFF N/A Normal [facility] [facility].; [facility] CULTURE WOUNDon 03-10-2020 CULTURE WOUND CULTURE WOUND _WOUND CULTURE_ M I C R O B I O L O G Y R E P O R T FINAL Antimicrobial Susceptibility and Organism Identification Report Specimen Number : [id number] Requested : 03/10/20 Specimen Source : WOUND Collected : 03/10/20 08:30 Fernandez of Isolation : OUTPATIENT Received : 03/10/20 08:30 Requesting Physician : CECILIA ACEVEDO ------ Patient/Specimen Tests and Comments Specimen Comments FINAL REPORT: ABUNDANT GROWTH GRAM POSITIVE COCCI source: right arm ------ Organisms Identified --- -------- * 01 Staphylococcus aureus 03/13/20 Comments abundant growth ------ Tech : Source : WOUND ID # : [id number] FINAL Report Date : / / : Collected : 03/10/20 08:30 Continued on Next Page M I C R O B I O L O G Y R E P O R T FINAL Antimicrobial Susceptibility and Organism Identification Report ------ Isolate 01 Staphylococcus aureus ------ Staphylococcus aureus DRUG KI[facility] Sys. Urine UNITS ML/DL --- ----- ----- Amp/Sulbactam <=8/4 S Ampicillin >8 SHASHI Amox/K Clav <=4/2 S Clindamycin <=0.5 S Cefoxitin Screen <=4 NEG Ciprofloxacin <=1 S Daptomycin <=0.5 S Erythromycin <=0.5 S Nitrofurantoin <=32 Gentamicin <=4 S Levofloxacin <=1 S Linezolid 2 S Moxifloxacin <=0.5 S Oxacillin <=0.25 S Penicillin >8 SHASHI Rifampin <=1 S Synercid <=0.5 S Trimeth/Sulfa <=0.5/9.5 S Tetracycline <=4 S Vancomycin 2 S B-Lactamase Positive +, ++, +++, or S = Susceptible N/R = Not Reported Shashi = Beta Lactamase Positive I = Intermediate CC = Cost Code TFG = Thymidine-dependent Strain R = Resistant KILEY = mcg/ml (mg/L) Blank = Data not available, or drug not advisable or tested For Blood and CSF Isolates, a Beta-Lactamase test is recommended for Enterococus species. IB appears in place of S, I (S), +, ++, or +++ with species known to possess inducible B-lactamases; potentially they may become resistant to all B-lactam drugs. Monitoring of patients during/after therapy is recommended. Avoid other/combined B-lactam drugs. (a) Use maximum doses of drug with an aminoglycoside for P. aeruginosa in patients with granulocytopenia or serious infections. (b) Breakpoints based on parenteral dose. For cefuroxime Axetil (PO) use <8=S, 8-16=I, >16=R. (c) For non-enterococcal streptococci, Micrococcus species, and Listeria species, refer to the Ampicillin interpretation. ------ * Interpretations based on approx. adult attainable systemic/urine levels, except drugs with <3 dilutions, which print NCCLS. Doses are guidelines; consider weight and renal/hepatic function. Urine interpretation for lower UTI only. Interpretations based on NCCLS M7-A2. Ticar/K Clav'ate for gram positives based on manufacturers service representative's breakpoints. ------ Tech : Source : WOUND ID # : [id number] FINAL Report Date : / / : Collected : 03/10/20 08:30 03/13/[id number]. 03/12/[id number]. SEND TO PHARMACY? NO [email or web address] PLETE NO Normal [facility] Comment on above: Performed By: [id number] #### [facility],[address] [place] [address] Laboratory - Microbiology an d Antimicrobial susceptibilityon 03-10-2020 Bacteria identified Cx Nom (Wound) See Note Normal [facility]; [facility] Work Phone: Laboratory - Chemistry and C hemistry - challengeon 06-24-2016 Albumin [Mass/Vol] 1.9 g/dL Abnormal 0.9 - 1.6 [facility] SeeWhy [facility].; [facility]. Albumin [Mass/Vol] 4.3 g/dL Normal 3.4 - 4.8 g/dL [facility] SeeWhy [facility].; [facility] SeeWhy [facility], [employer]. ALT [Catalytic activity/Vol] 22 U/L Normal 10 - 40 U/L [facility] SeeWhy [facility].; [facility] SeeWhy [facility], [employer]. Anion gap [Moles/Vol] 14 mmol/L Normal 10 - 2 0 mmol/L [facility] SeeWhy [facility].; [facility] SeeWhy [facility], [employer]. AST [Catalytic activity/Vol] 17 U/L Normal 13 - 39 U/L [facility] SeeWhy [facility].; [facility] SeeWhy [facility], [employer]. Bilirubin [Mass/Vol] 0.4 mg/dL Normal 0.0 - 1 .5 mg/dL [facility] SeeWhy [facility].; [facility] SeeWhy [facility], [employer]. Calcium [Mass/Vol] 9.4 mg/dL Normal 8.6 - 10. 2 mg/dL [facility] SeeWhy [facility].; [facility] SeeWhy [facility], [employer]. Chloride [Moles/Vol] 106 mmol/L Normal 98 - 10 7 mmol/L [facility]; [facility] CO2 [Moles/Vol] 25.0 mmol/L Normal 21.0 - 31.0 mmol/L [facility]; [facility] Creatinine [Mass/Vol] 0.9 mg/dL Normal 0.7 - 1.3 mg/dL [facility]; [facility] CRP [Mass/Vol] 0.40 mg/dL Normal 0.00 - 1.00 mg/dL [facility]; [facility] GFR/1.73 sq M.predicted among blacks MDRD (S/P/Bld) [Vol rate/Area] mL/min/{1.73_m2} Normal 60 - 999 {ML/MINUTE} [facility] GFR/1.73 sq M.predicted MDRD (S/P/Bld) [Vol rate/Area] mL/min/{1.73_m2} Normal 60 - 999 {ML/MINUTE} [facility].; [facility], [facility]. Globulin (S) [Mass/Vol] 2.3 g/dL Normal 1.5 - 3.8 g/dL [facility]; [facility] Glucose [Mass/Vol] 87 mg/dL Normal 74 - 106 mg/dL [facility]; [facility], [facility] Lipase [Catalytic activity/Vol] 25.0 U/L Normal 18.0 - 51.0 U/L [facility]; [facility], [facility] Potassium [Moles/Vol] 4.6 mmol/L Normal 3.5 - 5.1 mmol/L [facility]; [facility], [facility] Protein [Mass/Vol] 6.6 g/dL Normal 6.4 - 8.3 g/dL [facility]; [facility], [facility] Sodium [Moles/Vol] 140 mmol/L Normal 136 - 145 mmol/L [facility]; [facility] TSH Qn 2.02 m[IU]/L Normal 0.34 - 5.60 {uIU/ml} [facility]; [facility] Urea nitrogen [Mass/Vol] 14 mg/dL Normal 6 - 20 mg/dL [facility]; [facility] Urea nitrogen/Creatinine [Mass ratio] 16 {ratio} Normal 0 - 30 {ratio} [facility]; [facility] Laboratory - Hematology and Cell countson 06-24-2016 Basophils (Bld) [#/Vol] 0.00 {x10EE3/UL} Normal 0.00 - 0.10 {x10EE3/UL} [facility]; [facility], [facility] Basophils/100 WBC (Bld) 0.6 % Normal 0.0 - 2.0 % [facility]; [facility] CBC panel Auto (Bld) Normal [facility]; [facility] Eosinophils (Bld) [#/Vol] 0.10 {x10EE3/UL} Normal 0.00 - 0.50 {x10EE3/UL} [facility]; [facility], [facility] Eosinophils/100 WBC (Bld) 1.3 % Normal 0.0 - 7.0 % [facility]; [facility] Erythrocyte distribution width (RBC) [Ratio] 13.6 % Normal 12.0 - 15.6 % [facility]; [facility] Hematocrit (Bld) [Volume fraction] 44.5 % Normal 40.0 - 52.0 % [facility]; [facility], [facility] Hemoglobin (Bld) [Mass/Vol] 15.5 g/dL Normal 13.0 - 17.5 g/dL [facility]; [place] [facility] Lymphocytes (Bld) [#/Vol] 2.30 {x10EE3/UL} Normal 0.80 - 2.80 {x10EE3/UL} [facility], [facility].; [facility], [facility]. Lymphocytes/100 WBC (Bld) 32.0 % Normal 20.0 - 45.0 % [facility], [facility].; [facility], [facility] Lymphocytes/100 WBC (Bld) 31 % Normal 20 - 40 % [facility], [facility].; [facility], [facility]. MCH (RBC) [Entitic mass] 30 pg Normal 27 - 33 pg [facility], [facility].; [facility], [facility]. MCHC (RBC) [Mass/Vol] 35 {X10_3} Normal 32 - 3 6 {X10_3} [facility], [facility].; [facility], [facility]. MCV (RBC) [Entitic vol] 85 fL Normal 81 - 98 fL [facility].; [facility], [facility]. Monocytes (Bld) [#/Vol] 0.40 {x10EE3/UL} Normal 0.20 - 1.00 {x10EE3/UL} [facility], [facility].; [facility], [facility]. Monocytes/100 WBC (Bld) 6.0 % Normal 0.0 - 10.0 % [facility], [facility].; [facility], [facility] Morphology Alec (Bld) [Interp] REVIEWED Normal [facility].; [facility], [facility]. Neutrophils (Bld) [#/Vol] 4.30 {x10EE3/UL} Normal 1.50 - 7.10 {x10EE3/UL} [facility], [facility].; [facility], [facility]. Neutrophils/100 WBC (Bld) 60.1 % Normal 46.0 - 76.0 % [facility], [facility].; [facility], [facility] Platelet mean volume (Bld) [Entitic vol] 8.2 fL Normal 6.4 - 10.5 fL [employer] [facility] [employer] [facility] Platelets (Bld) [#/Vol] 253 {x10EE3/UL} Normal 1 50 - 450 {x10EE3/UL} [employer] [facility] [employer] RBC (Bld) [#/Vol] 5.24 {x_10EE6/UL} Normal 4.50 - 6.00 {x_10EE6/UL} [employer] [place] - [facility] [employer] WBC (Bld) [#/Vol] 7.2 {x_10EE3/UL} Normal 4.5 - 10.8 {x_10EE3/UL} [employer] [facility] - [employer] No Panel Informationon 06-24 AGE 60 {years} Normal [employer] ALK PHOS 64 U/L Normal 38 - 126 U/L [facility] [employer].; [employer] CMP with eGFR Normal [employer].; [employer] [facility] [employer] EO 2.0 % Normal 0.0 - 4.0 % [employer].; [employer] MANUAL DIFF SEE BELOW Normal [facility] [employer].; [employer] MONOS 11 % Abnormal 0 - 8 % [employer] [facility] SEGS 56 % Normal 50 - 70 % [employer] No Panel Informationon 01-05 Non HDL cholesterol 167 Normal [employer].; [employer] Laboratory - Chemistry and C hemistry - challengeon 01-01-2013 Albumin [Mass/Vol] 4.3 g/dL Normal 3.5 - 5.0 g/dL [employer] ALP [Catalytic activity/Vol] 73 U/L Abnormal 20 - 70 U/L [facility].; [facility], [facility]. ALT [Catalytic activity/Vol] 15 U/L Normal 8.0 - 20.0 U/L [facility].; [facility], [facility]. AST [Catalytic activity/Vol] 18 U/L Normal 8.0 - 20.0 U/L [facility].; [facility], [facility] Bilirubin [Mass/Vol] 0.3 mg/dL Normal 0.3 - 1 .0 mg/dL [facility].; [facility], [facility]. Bilirubin Ql (U) Negative Normal [facility]; [facility], [facility] Calcium [Mass/Vol] 9.9 mg/dL Normal 8.2 - 10. 2 mg/dL [facility]; [facility], [facility] Chloride [Moles/Vol] 103 mmol/L Normal 97.0 - 107.0 meq/L [facility]; [facility], [facility]. Cholesterol [Mass/Vol] 212 mg/dL Abnormal 0 - 2 00.0 mg/dL [facility].; [facility], [facility]. Cholesterol in HDL [Mass/Vol] 45 mg/dL Normal 30.0 - 70.0 mg/dL [facility]; [facility], [facility]. Cholesterol in LDL [Mass/Vol] 117 mg/dL Normal 50.0 - 190.0 mg/dL [facility].; [facility], [facility]. Creatinine [Mass/Vol] 1.0 mg/dL Normal 0.8 - 1.4 mg/dL [facility].; [facility], [facility] Glucose [Mass/Vol] 99 mg/dL Normal 75 - 105 mg/dL [facility].; [facility], [facility] Ketones Ql (U) Negative Normal [facility]; [facility], [facility] pH (U) 6.0 [pH] Normal [facility]; [facility], [facility] Potassium [Moles/Vol] 4.7 mmol/L Normal 3.5 - 5 meq/L [facility]; [facility] Prostate specific Ag [Mass/Vol] 2.3 ng/dL Normal 0 - 4.0 ng/dL [facility]; [facility] Protein [Mass/Vol] 6.9 g/dL Normal 6.0 - 8.0 g/dL [facility]; [facility] Sodium [Moles/Vol] 141 mmol/L Normal 136 - 145 mmol/L [facility]; [facility] Specific gravity (U) [Rel density] 1.010 Normal [facility]; [facility] Triglyceride [Mass/Vol] 248 mg/dL Abnormal 40 - 160 mg/dL [facility]; [facility], [facility] TSH Qn 2.11 mU/mL Normal 0.7 - 5.3 mU/mL [facility]; [facility], [facility] Urea nitrogen [Mass/Vol] 16 mg/dL Normal 5.0 - 20.0 mg/dL [facility]; [facility], [facility] Laboratory - Hematology and Cell countson 01-01-2013 HbA1c (Bld) [Mass fraction] 5.5 % Normal 4.6 - 7.1 % [facility]; [facility], [facility]. Hemoglobin Ql (U) Negative Normal [facility]; [facility], [facility] Laboratory - Specimen inform ationon 01-01-2013 Appearance (U) CLEAR Normal [facility]; [facility], [facility] Color (U) YELLOW Normal [facility]; [facility], [facility] Laboratory - Urinalysison Glucose Test strip (U) [Mass/Vol] Negative Normal [facility]; [facility], [facility] Leukocyte esterase Test strip Ql (U) Negative Normal [facility], [facility].; [facility], [facility] Nitrite Ql (U) Negative Normal [facility], [facility].; [facility], [facility] Protein Ql (U) Negative Normal [facility], [facility].; [facility], [facility] No Panel Informationon 01-01 OCCULT BLOOD, FECES, SINGLE (IN OFFICE) Negative [facility], [facility].; [facility], [facility] UA - ODOR Negative [facility], [facility].; [facility], [facility] UA - UROBILIGEN 0.2 [facility].; [facility], [facility]. Laboratory - Chemistry and C hemistry - challengeon 11-15-2011 Bilirubin Ql (U) Negative [facility], [facility].; [facility], [facility] Ketones Ql (U) Negative Normal [facility], [facility].; [facility], [facility] pH (U) 5.0 [pH] Normal [facility], [facility].; [facility], [facility] Specific gravity (U) [Rel density] 1.020 [facility], [facility].; [facility], [facility] Laboratory - Hematology and Cell countson 11-15-2011 Hemoglobin Ql (U) Negative Normal [facility], [facility].; [facility], [facility] Laboratory - Specimen inform ationon 11-15-2011 Appearance (U) CLEAR Normal [facility], [facility].; [facility], [facility] Color (U) YELLOW Normal [facility], [facility].; [facility], [facility] Laboratory - Urinalysison Glucose Test strip (U) [Mass/Vol] Negative [facility], [facility].; [facility], [facility] Leukocyte esterase Test strip Ql (U) Negative Normal [facility], [facility].; [facility], [facility] Nitrite Ql (U) Negative Normal [facility], [facility].; [facility], [facility]. Protein Ql (U) Negative Normal [facility].; [facility]. No Panel Informationon 11-14 OCCULT BLOOD, FECES, SINGLE (IN OFFICE) Negative [facility].; [facility], [facility]. UA - ODOR Negative [facility].; [facility]. UA - UROBILIGEN 0.2 Normal [facility].; [facility], [facility]. Vital Signs Date Time Vital Sign Value Performing Clinician Faci lity 08-29-2022 16:12-0400 Body temperature 97.8 [degF] Dr. Samreen Chao Work Phone: [facility] 08-29-2022 16:12-0400 Diastolic blood pressure 96 mm[Hg] Dr. Samreen Chao Work Phone: [facility] 08-29-2022 16:12-0400 Heart rate 79 /min Dr. Samreen Chao Work Phone: [facility] 08-29-2022 16:12-0400 Respiratory rate 16 /min Dr. Samreen Chao Work Phone: [facility] 08-29-2022 16:12-0400 SaO2% (BldA) [Mass fraction] 96 % Dr. Samreen Chao Work Phone: [facility] 08-29-2022 16:12-0400 Systolic blood pressure 147 mm[Hg] Dr. Samreen Chao Work Phone: [facility] 08-28-2022 13:07-0400 Inhaled oxygen flow rate 2 L/min Dr. Samreen Chao Work Phone: [facility] 08-28-2022 12:46-0400 Body height 185.[address] Samreen Chao Work Phone: [facility] 08-28-2022 12:46-0400 Body mass index (BMI) [Ratio] 29.8 kg/m2 Dr. Samreen Chao Work Phone: [facility] 08-28-2022 12:46-0400 Body weight 102.[address] Samreen Chao Work Phone: [facility] 03-21-2022 10:58-0400 Body height 183.52 cm Disha Small RN [facility], [employer].; [facility] [facility] 03-21-2022 10:58-0400 Body mass index (BMI) [Ratio] 30.3 kg/m2 Disha Small RN [facility], [employer].; [facility], [facility] 03-21-2022 10:58-0400 Body surface area Derived from formula 2.25 m2 Disha Small RN [facility], [facility].; [facility], [facility] 03-21-2022 10:58-0400 Body weight 102.06 kg Disha Small RN [facility], [facility].; [facility] See[facility], [facility] 03-21-2022 10:58-0400 Diastolic blood pressure 93 mm[Hg] Disha Small RN [facility], [employer].; [facility] See[employer] [facility], [facility] Comment on above: Patient Position: Sitting; Cuff Location : Left Arm; Cuff Size: Large 03-21-2022 10:58-0400 Heart rate 79 /min Disha Small RN [facility] SeeWhy [facility], [facility].; [facility] See[employer] [facility], [employer]. Comment on above: Pattern: Regular 03-21-2022 10:58-0400 Systolic blood pressure 146 mm[Hg] Disha Small RN [facility] SeeWhy [facility], [employer].; [facility] See[facility], [employer]. Comment on above: Patient Position: Sitting; Cuff Location : Left Arm; Cuff Size: Large 06-24-2016 15:33-0500 Body height 183.52 cm Disha Small RN [facility] [facility], [facility].; [facility], [facility] 06-24-2016 15:33-0500 Body mass index (BMI) [Ratio] 29.83 kg/m2 Disha Small RN [facility] [facility], [facility].; [facility] See[employer] [facility], [facility] 06-24-2016 15:33-0500 Body surface area Derived from formula 2.23 m2 Disha Small RN [facility], [facility].; [facility] [facility], [facility] 06-24-2016 15:33-0500 Body temperature 98 [degF] Disha Small RN [facility] [facility], [facility].; [facility] [facility], [facility] Comment on above: Method: Oral 06-24-2016 15:33-0500 Body weight 100.47 kg Disha Small RN [facility] [facility], [facility].; [facility], [facility] 06-24-2016 15:33-0500 Diastolic blood pressure 83 mm[Hg] Disha Small RN [facility] [facility], [facility].; [facility] [employer] [facility] Comment on above: Patient Position: Sitting; Cuff Location : Left Arm; Cuff Size: Large 06-24-2016 15:33-0500 Heart rate 69 /min Disha Small RN [facility], [facility].; [facility] [employer] [facility] Comment on above: Pattern: Regular 06-24-2016 15:33-0500 Systolic blood pressure 119 mm[Hg] Disha Small RN [facility] See[employer] [facility], [facility].; [employer] [facility] [employer] [facility], [facility] Comment on above: Patient Position: Sitting; Cuff Location : Left Arm; Cuff Size: Large 06-17-2016 13:47-0500 Body height 183.52 cm Disha Small RN [facility], [facility].; [facility], [facility] 06-17-2016 13:47-0500 Body mass index (BMI) [Ratio] 29.77 kg/m2 Disha Small RN [facility] [facility], [facility].; [facility] [facility], [facility] 06-17-2016 13:47-0500 Body surface area Derived from formula 2.23 m2 Disha Small RN [facility], [facility].; [facility], [facility] 06-17-2016 13:47-0500 Body temperature 97.9 [degF] Disha Small RN [facility] See[employer] [facility], [employer].; [facility] [facility], [employer]. Comment on above: Method: Oral 06-17-2016 13:47-0500 Body weight 100.25 kg Disha Small RN [facility], [facility].; [facility], [facility] 06-17-2016 13:47-0500 Diastolic blood pressure 86 mm[Hg] Disha Small RN [facility] [facility], [facility].; [facility] [employer] Comment on above: Patient Position: Sitting; Cuff Location : Left Arm; Cuff Size: Large 06-17-2016 13:47-0500 Heart rate 78 /min Disha Small RN [facility] [employer] [facility], [employer].; [facility] [employer], [employer]. Comment on above: Pattern: Regular 06-17-2016 13:47-0500 Inhaled oxygen concentration 21 % Disha Small RN [facility] See[facility], [facility].; [facility] [facility], [employer]. Comment on above: Room air 06-17-2016 13:47-0500 SaO2% (BldA) [Mass fraction] 97 % Disha Small RN [facility], [facility].; [facility] [facility], [facility] 06-17-2016 13:47-0500 Systolic blood pressure 118 mm[Hg] Disha Small RN [facility], [facility].; [facility] [facility] Comment on above: Patient Position: Sitting; Cuff Location : Left Arm; Cuff Size: Large 01-01-2013 15:16-0400 Body height 182.88 cm Disha Small RN [facility] [facility], [facility].; [facility] [facility], [facility] 01-01-2013 15:16-0400 Body mass index (BMI) [Ratio] 29.02 kg/m2 Disha Small RN [facility] [facility], [facility].; [facility] [facility], [facility] 01-01-2013 15:16-0400 Body surface area Derived from formula 2.19 m2 Disha Small RN [facility] [facility], [facility].; [facility], [facility] 01-01-2013 15:16-0400 Body weight 97.07 kg Disha Small RN [facility], [employer].; [facility] 01-01-2013 15:16-0400 Diastolic blood pressure 85 mm[Hg] Disha Small RN [facility], [facility].; [facility] SeeWhy [facility] Comment on above: Patient Position: Sitting; Cuff Location : Left Arm; Cuff Size: Large 01-01-2013 15:16-0400 Heart rate 76 /min Disha Small RN [facility] SeeWhy [facility] Comment on above: Pattern: Regular 01-01-2013 15:16-0400 Systolic blood pressure 129 mm[Hg] Disha Small RN [facility] SeeWhy [facility], [facility].; [facility] See[employer] [facility] Comment on above: Patient Position: Sitting; Cuff Location : Left Arm; Cuff Size: Large 11-15-2011 14:19-0400 Body height 182.88 cm Disha Small RN [facility] SeeWhy [facility], [facility].; [facility] See[employer] [facility] 11-15-2011 14:19-0400 Body mass index (BMI) [Ratio] 29.43 kg/m2 Disha Small RN [facility], [facility].; [facility] 11-15-2011 14:19-0400 Body surface area Derived from formula 2.21 m2 Disha Small RN [facility], Inc.; [facility] [employer] [facility] 11-15-2011 14:19-0400 Body weight 98.43 kg Disha Small RN [facility] SeeWhy [facility].; [facility] SeeWhy [facility] 11-15-2011 14:19-0400 Diastolic blood pressure 89 mm[Hg] Disha Small RN [facility], [facility].; [facility] [employer] [facility], [employer]. Comment on above: Patient Position: Sitting; Cuff Location : Left Arm; Cuff Size: Large 11-15-2011 14:19-0400 Heart rate 76 /min Disha Smlal RN [facility], [facility].; [facility]. Comment on above: Pattern: Regular 11-15-2011 14:19-0400 Systolic blood pressure 121 mm[Hg] Disha Small RN [facility].; [facility]. Comment on above: Patient Position: Sitting; Cuff Location : Left Arm; Cuff Size: Large Encounters Encounter Date Encounter Type Care Provider Facility Start: 11-02-2024 End: 11-02-[address] Samreen Chao MD Work Phone: [facility] Work Phone: Start: 11-02-2024 End: 11-02-[address] Donaldo Nielsen MD -Laboratory Work Phone: Start: 11-02-2024 End: 11-02-2024 ambulatory Samreen Chao Facility:[facility] Start: 04-29-2024 End: 04-29-2024 ambulatory Sonal Quiros Facility:[facility] Start: 10-02-2023 End: 10-02-2023 ambulatory [facility] Work Phone: Start: 10-02-2023 End: 10-02-2023 Patient encounter procedure [facility]-Laboratory Work Phone: Start: 03-17-2023 End: 03-17-2023 ambulatory [facility] Work Phone: Start: 03-17-2023 End: 03-17-2023 Patient encounter procedure [facility]-Laboratory Work Phone: Start: 11-07-2022 End: 11-07-[address] Samreen Chao Work Phone: [facility] Work Phone: Start: 11-07-2022 End: 11-07-[address] Samreen Chao Work Phone: [facility]-Laboratory Start: 08-28-2022 End: 08-29-2022 Evaluation and management of inpatient Dr. Samreen Chao Work Phone: [facility]-Medical Surgical 3 Start: 08-28-2022 End: 08-29-[address] Samreen Chao Work Phone: [facility] Work Phone: Start: 08-20-2022 End: 08-20-2022 Non-patient / Non-visit Dr. Samreen Chao Work Phone: [facility] Start: 07-12-2022 End: 07-12-[address] Samreen Chao Work Phone: [facility]-Nuclear Medicine, [facility] Start: 06-11-2022 End: 06-11-2022 ambulatory [facility] Work Phone: Start: 06-11-2022 End: 06-11-2022 Patient encounter procedure [facility]-Laboratory, Specimen Start: 04-02-2022 End: 04-02-2022 Historical Summary SAMREEN CHAO MD Work Phone: [employer] Start: 03-25-2022 End: 03-25-2022 Patient encounter procedure SAMREEN CHAO MD Work Phone: [employer]. Start: 03-21-2022 End: 03-21-2022 Patient encounter status SAMREEN CHAO MD Work Phone: [employer] [employer]. Start: 03-21-2022 End: 03-21-2022 Periodic preventive med est patient 65yrs& older SAMREEN CHAO MD Work Phone: [employer]. Start: 03-11-2020 End: 03-11-2020 [facility] Start: 07-04-2016 End: 07-04-2016 Results Review SAMREEN CHAO MD Work Phone: [employer] Start: 07-01-2016 End: 07-01-2016 Procedure Order SAMREEN CHAO MD Work Phone: [place] [employer]. Start: 06-27-2016 End: 06-27-2016 Procedure Order SAMREEN CHAO MD Work Phone: [facility] [employer]. Start: 06-27-2016 End: 06-27-2016 Patient encounter procedure SAMREEN CHAO MD Work Phone: [employer] Start: 06-25-2016 End: 06-25-2016 Results Review SAMREEN CHAO MD Work Phone: [place] [employer] [facility] Start: 06-24-2016 End: 06-24-2016 Office outpatient visit 15 minutes SAMREEN CHAO MD Work Phone: [employer] Start: 06-17-2016 End: 06-17-2016 Office outpatient visit 15 minutes SAMREEN CHAO MD Work Phone: [employer] Start: 01-01-2013 End: 01-05-2013 Follow-up encounter SAMREEN CHAO MD Work Phone: [employer] Start: 01-01-2013 End: 01-01-2013 Patient encounter procedure SAMREEN CHAO MD Work Phone: [employer] Start: 01-01-2013 End: 01-01-2013 Physical examination SAMREEN CHAO MD Work Phone: [employer]; [employer] Start: 11-15-2011 End: 11-15-2011 Injection/immunization only SAMREEN CHAO MD Work Phone: [employer] [facility] Start: 11-15-2011 End: 11-15-2011 Patient encounter procedure SAMREEN CHAO MD Work Phone: [facility]. Start: 11-15-2011 End: 11-15-2011 Routine general medical examination at a health care facility SAMREEN CHAO MD Work Phone: [facility].; [facility] Procedures Date Procedure Procedure Detail Performing Clinician Start: 11-02-2024 Assay of prostate sp ecific antigen total Dr. Samreen Chao MD Work Phone: Comment on above: This test was perfor med using the [employer] tPSA method. Measured values of a patient sample can vary depending on the testing procedure used. PSA values determined on patient samples by different testing procedures cannot be used interchangeably. If there is a change in PSA assays while monitoring therapy, sequential testing should be performed to confirm baseline values. Start: 08-28-2022 Lap Robotic Prostate ctomy (Not Applicable) Dr. Samreen Chao Work Phone: Start: 07-12-2022 Radionuclide whole b delio bone study Dr. Samreen Chao Work Phone: Start: 03-21-2022 End: 03-21-2022 Prostate specific antigen measurement SAMREEN CHAO MD Work Phone: Comment on above: 8.5 Start: 01-01-2013 End: 01-01-2013 TOYA (Digital Rectal Exam) DEANGELO HERNANDEZ Comment on above: Normal. Start: 01-01-2013 End: 01-01-2013 Screening colonoscopy DEANGELO HERNANDEZ Comment on above: Discussed. Start: 01-01-2013 End: 01-01-2013 Stool for Occult Blood DEANGELO HERNANDEZ Comment on above: Negative. Start: 11-15-2011 End: 11-15-2011 Adacel DEANGELO HERNANDEZ Appendectomy SAMREEN CHAO MD Work Phone: Plan of Treatment Date Care Activity Detail Author Start: 08-29-2022 Patient discharge [facility] Start: 08-28-2022 Anes xtrprtl lwr abd w/urinary tract rad prstect ANESTH REMOVAL OF PROSTATE [facility] Start: 08-28-2022 Laps prostect retropubic rad w/nrv sparing robot LAPS SURG [id number] RPBIC RAD [facility] Start: 08-28-2022 Application of intermittent pneumatic compression device [facility] Start: 08-28-2022 Following clinical pathway protocol [facility] Start: 08-28-2022 Assessment of risk of venous thromboembolism [facility] Start: 08-28-2022 Deep breathing and coughing exercises [facility] Start: 08-28-2022 Incentive spirometry [facility] Start: 08-28-2022 Measuring intake and output [facility] Start: 08-28-2022 Patient education [facility] Start: 08-28-2022 Provision of activity privileges [facility] Start: 08-28-2022 Taking patient vital signs [facility] Start: 08-28-2022 Vital signs measurements [facility] Start: 08-28-2022 End: 08-28-2022 [facility] Start: 08-28-2022 Admission procedure [facility] Start: 07-01-2016 Ct abdomen & pelvis w/contrast material CT ABD & PELV W/CONTRAST (67058) - IV Contrast per Protocol Start: 01-Jul-2016 [facility] [employer] [facility] [employer] [employer] [facility]. Start: 06-27-2016 Hepatobil syst imag inc gb w/pharma intervenj HIDA SCAN WITH EF (96867) Start: 27-Jun-2016 [facility] [employer] [employer]. Start: 06-24-2016 Us abdominal real time w/image limited US RUQ ABD US gb/rt kidney/pancreas/liver (53832) Start: 24-Jun-2016 [facility] [employer] [employer] [facility] [employer]. Start: 01-05-2013 Patient Education [employer] [employer]. Start: 01-01-2013 Patient Education [facility] [employer].; [place] [employer] [facility] [employer], [employer]. Start: 01-01-2013 Prostate ca screening; toya DIGITAL RECTAL EXAMINATION (G0102) Start: 01-Jan-2013 [facility] [employer] [facility] Start: 11-15-2011 Patient Education [facility]; [facility] Start: 11-15-2011 Prostate ca screening; toya DIGITAL RECTAL EXAMINATION (G0102) Start: 15-Nov-2011 Intent [facility]; [facility] Patient Education Radical Prostatectomy D c [facility] Work Phone: Patient referral [facility] Work Phone: Immunizations Immunization Date Immunization Notes Care Provider Fa jade 11-15-2011 tetanus toxoid, redu yaquelin diphtheria toxoid, and acellular pertussis vaccine, adsorbed SAMREEN CHAO MD Work Phone: [facility]; [facility]. Comment on above: Site: Deltoid (Left) 11-15-2011 *IMMUNIZATION ADMIN ([id number]) SAMREEN CHAO MD Work Phone: [facility]; [facility] Payers Date Payer Category Payer Medicare [id number] 2024 Self-pay 2024 Unknown [id number] 1955 Unknown [id number] Unknown [id number] Unknown [id number] Unknown [id number] Social History Date Type Detail Facility [facility] ever smoked [facility] Work Phone: Start: 1955 Sex Assigned At Male [facility] Start: 08-15-2022 Tobacco [facility] if ever smoked [facility] Alcohol Use: Alcohol Use: ; N ever used alcohol. [facility]; [facility] Current Work/Study Status: Current Work/Study Status: ; Full-time. [facility] SeeWhy [facility].; [facility] Highest Education Le kateryna Attained: Highest Education Level Attained: ; Less than high school. [facility]; [facility] Marital status: Marital status: ; . [facility].; [facility] Tobacco use: Tobacco use: ; N ever smoker. [facility].; [facility] Full-time [facility].; [facility] Work Phone: Start: 08-15-2022 Never smoked tobacco [facility] Less than high school [facility] SeeWhy [facility] Processing.; [facility] Work Phone: [facility]; [facility] Work Phone: Medical Equipment Procedure Code Equipment Code Equipment Origin al Text Equipment Identifier Dates Ligation clip, synthetic polymer, non-bioabsorbable [id number] [facility] Start: 08-28-2022 Goals Date Patient Goal Desired Activity /State Functional Status Date Assessment Result Facility 08-29-2022 Functional status [facility] Work Phone: Mental Status Date Assessment Result Facility 08-29-2022 Cognitive function Voice/Name [facility] Work Phone: Procedure note 08-28-2022 Note Date & Type Note Facility 08-28-2022 Procedure note [facility] Discharge summary 08-28-2022 Note Date & Type Note Facility 08-28-2022 Discharge summary Note Date/Time [facility], [facility]22 [facility] [address] [place] [address] Instructions for Home/Discharge Instructions 08/28/22 0732 MR#: [id number] Acct: [id number] Name: JELENA HARRIS Rep #:[id number] : 1955 66 From: Donaldo Nielsen MD PCP: Dr. Samreen Chao MD Status:REG S DC Discharge Instructions Diet Discharge Diet: No restrictions, Light diet - advance as tolerated and Soft diet Activity Discharge Activity: May Shower Return to work on:: 10/09/22 May shower in (days): 1 Lifting Restrictions: No lifting over 10 pounds for 6 weeks no heavy activity nostraining Dressing / Incision Call your doctor if your incision/area has: Continuous Slow Oozing, Sudden Increased Bleeding and Increased Redness Call your doctor if you observe: Fever of 101 or Higher and Inability to have a bowel movement Cleanse incision/area with: Soap & Water Catheter: Tuttle to leg bag and Tuttle to large bag Drain: [place] Follow Up Care Please Follow Up With: Donaldo Nielsen MD When: Two weeks for an appt to remove tuttle. Test Results: Test results from this visit will be discussed in further detail at your follow-up appointment, if applicable. Discharge Plan Admission Primary Reason for Your Visit: Prostate cancer Attending Provider: Donaldo Nielsen Primary Care Provider: Samreen Chao Instructions Patient Instructions: Radical Prostatectomy Dc Discharge Orders/Prescriptions Prescriptions: New ciprofloxacin HCl [Cipro] 500 mg tablet 500 mg PO BID Qty: 20 0RF docusate sodium [Colace] 100 mg capsule 100 mg PO BID Qty: 20 0RF oxycodone-acetaminophen [Endocet] 5-325 mg tablet 1 tab PO Q6H PRN (Reason: pain) 7 Days Qty: 14 0RF Held cranberry 500 mg Capsule 500 mg PO DAILY Hold Instructions: Resume on 09/11/22. Rx Instructions: administer with meals Referrals / Follow Up: Donaldo Nielsen MD [Med Staff - Active Staff] - Samreen Chao MD [Primary Care Provider] - Disposition Disposition (needs filled in before D/C Order can be placed): Home, Self Care 08/28/22 0734<Electronically signed by Donaldo Nielsen MD>Donaldo Nielsen MD CC: Dr. Samreen Chao MD ~ Signed [facility] Work Phone: History and physical note 08-28-2022 Note Date & Type Note Facility 08-28-2022 History and physical note Note Date/Time August 28, 2022 7:33am [facility] Medical Records Department [address] [place] [address] History & Physical Exam 08/28/22 0732 MR#: [id number] Acct: [id number] Name: JELENA HARRIS Rep #:[id number] : 1955 66 From: Donaldo Nielsen MD PCP: Dr. Samreen Chao MD Status:REG S DC Location: [place] [address] HPI - General General Chief Complaint: Prostate cancer HPI Narrative JELENA HARRIS, is a 66 M who presents for radical robotic prostatectomy bilateral nerve sparing [facility] Medical History (Updated 08/28/22 @ 07:[address] Donaldo Nielsen MD) Gastric reflux Non-smoker Wears glasses Home Medications cranberry 500 mg capsule 500 mg PO DAILY 08/15/22 [History Last Taken 08/27/22] ciprofloxacin HCl 500 mg tablet (Cipro) 500 mg PO BID #20 tabs 08/28/22 [Rx Last Taken Unknown] docusate sodium 100 mg capsule (Colace) 100 mg PO BID #20 caps 08/28/22 [Rx Last Taken Unknown] oxycodone-acetaminophen 5 mg-325 mg tablet (Endocet) 1 tab PO Q6H PRN pain 7 days #14 tabs 08/28/22 [Rx Last Taken Unknown] Allergy/AdvReac Type Severity Reaction Status Date / Time No Known Allergies Allergy Verified 08/15/22 10:20 Surgical History (Updated 08/15/22 @ 10:28 by Nevaeh Carreon) Hx of appendectomy Social History Smoking Status: Never smoker Vital Signs Vital Signs Vital Signs: 08/28/22 06:34 08/28/22 06:34 Temperature 98.4 F Temperature Source Temporal Pulse Rate 73 Respiratory Rate 16 Respiratory Pattern Normal Blood Pressure 117/95 H Blood Pressure Mean 102 Blood Pressure Source Monitor Blood Pressure Position Semi-Fowlers Blood Pressure Location Right Arm Pulse Ox 95 Oxygen Delivery Method Room Air Weight Weight: 101 kg Body Mass Index (BMI) 29.3 Results Lab / Micro Data Result Diagrams: 08/20/22 13:29 08/28/22 0733 <Electronically signed by Donaldo Nielsen MD> Cosigner Signature (if applicable): CC: Dr. Donaldo Nielsen MD; Dr. Samreen Chao MD~ Signed [facility] Work Phone: Evaluation note Note Date & Type Note Facility Evaluation note No assessment information availa ble [facility] Work Phone: Hospital Discharge instructions Note Date & Type Note Facility Hospital Discharge instructions Additional Instructions Implant Used?: Yes CLIPS [facility] Work Phone: Reason for referral (narrative) Note Date & Type Note Facility Reason for referral (narrative) No reason for referral information available [facility] Work Phone: Summary Purpose Family History No Family History Records Found Brother (s) Status:Active Comments:0. Daughter (s) Status:Active Comments:1. hype rtrophic cardiomyopathy Father Status:Active Comments: d. age 74 parkinson's Mother Status:Active Comments:d.age 8 9 Sister (s) Status:Active Comments:2. In [place]. Son (s) Status:Active Comments:3. In [place]. Brother (s) Status:Active Comments:0. Daughter (s) Status:Active Comments:1. hype rtrophic cardiomyopathy Father Status:Active Comments: d. age 74 parkinson's Mother Status:Active Comments:d.age 8 9 Sister (s) Status:Active Comments:2. In [place]. Son (s) Status:Active Comments:3. In [place] [facility]. Brother (s) Status:Active Comments:0. Daughter (s) Status:Active Comments:1. hype rtrophic cardiomyopathy Father Status:Active Comments: d. age 74 parkinson's Mother Status:Active Comments:d.age 8 9 Sister (s) Status:Active Comments:2. [place]. Son (s) Status:Active Comments:3. In [place]. Brother (s) Status:Active Comments:0. Daughter (s) Status:Active Comments:1. hype rtrophic cardiomyopathy Father Status:Active Comments: d. age 74 parkinson's Mother Status:Active Comments:d.age 8 9 Sister (s) Status:Active Comments:2. [place]. Son (s) Status:Active Comments:3. In [place]. Brother (s) Status:Active Comments:0. Daughter (s) Status:Active Comments:1. hype rtrophic cardiomyopathy Father Status:Active Comments: d. age 74 parkinson's Mother Status:Active Comments:d.age 8 9 Sister (s) Status:Active Comments:2. In [place]. Son (s) Status:Active Comments:3. In [place]. Brother (s) Status:Active Comments:0. Daughter (s) Status:Active Comments:1. hype rtrophic cardiomyopathy Father Status:Active Comments: d. age 74 parkinson's Mother Status:Active Comments:d.age 8 9 Sister (s) Status:Active Comments:2. In [place]. Son (s) Status:Active Comments:3. In [place] Current. Advance Directives No Advanced Directives Records Found Advance Directive Response Recorded Date/ Time Name of Medical Power of Room Inspector OXANA HARRIS August 28, 2022 12:46pm Living Will Yes August 28, 2022 12:46pm Power of Room Inspector Yes August 28 12:46pm Advance Directive Response Recorded Date/ Time Living Will Yes August 28, 2022 12:46pm Power of Room Inspector Yes August 28 12:46pm Chief Complaint and Reason for Visit Chief Complaint PROSTATE BIOPSY Chief Complaint PROSTATE BIOPSY PROSTATE CANCER PREOP LAP ROBOTIC RADICAL PROSTATECTOMY Chief Complaint PREOP LAP ROBOTIC RADICAL PROSTATECTOMY PSA Chief Complaint PSA Additional Source Comments (unrecognized sect ion and content) No Status Records FoundNo Status Records Found INFORMATION SOURCE (unrecogn ized section and content) DATE CREATED AUTHOR 03/13/2020 [facility] DATE CREATED AUTHOR AUTHOR'S JERMAINE HARMON [facility]/2024 [facility] Care Teams (unrecognized sec tion and content) Team Status: Active Member Role Status Dates Dr. Samreen Chao MD Primary Care Provider Active Team Status: Inactive Member Role Status Dates Dr. Samreen Chao MD Primary Care Provider Active Dr. Donaldo Nielsen MD Attending Provider, Referr ing Provider Active Team Status: Active Member Role Status Dates Dr. Samreen Chao MD Primary Care Provider Active Dr. Keshav Cadena MD Attending Provider Active Dr. Donaldo Nielsen MD Referring Provider Active Team Status: Inactive Member Role Status Dates Dr. Samreen Chao MD Primary Care Provider Active Dr. Donaldo Nielsen MD Attending Provider Active Team Status: Inactive Member Role Status Dates Dr. Samreen Chao MD Primary Care Provider Active Dr. Donaldo Nielsen MD Admit Provid er, Attending Provider, Referring Provider Active Team Status: Inactive Member Role Status Dates Dr. Samreen Chao MD Primary Care Provider Active Sonalfitz Fuchsing Attending Provider, Referring Provide r Active Team Status: Inactive Member Role Status Dates Dr. Samreen Chao MD Primary Care Provider Active Start: November 02, 2024 End: November 02, 2024 Dr. Donaldo Nielsen MD Attending Provider Active Start: November 02, 2024 End: November 02, 2024 Dr. Donaldo Nielsen MD Referring Provider Active Start: November 02, 2024 End: November 02, 2024 Goals (unrecognized section and content) Goals may be documented in a n alternate sectionGoals may be documented in an alternate sectionGoals may be documented in an alternate sectionGoals may be documented in an alternate section FOR RECORDS PERTAINING TO PATIENTS WHO ARE OR HAVE BEEN ENROLLED IN A CHEMICAL DEPENDENCY/SUBSTANCEABUSE PROGRAM, SOME INFORMATION MAY BE OMITTED. This clinical summary was aggregated from multiple sources. Caution should be exercised in using it in the provision of clinical care. This summary normalizes information from multiple sources, and as a consequence, information in this document may materially change the coding, format and clinical context of patient data. In addition, data may be omitted in some cases. CLINICAL DECISIONS SHOULD BE BASED ON THE PRIMARY CLINICAL RECORDS. [employer] provides no warranty or guarantee of the accuracy or completeness of information in this document.
== END | disposition home or self-care (01) ==
LOC: LAB 16:06
PROVIDERS: PCP Family Medicine; Referring Provider Nurse Practitioner; Visit Provider Nurse Practitioner
DX: Z12.5 Encounter for screening for malignant neoplasm of prostate (principal); C61 Malignant neoplasm of prostate
CPT/HCPCS: 36415; 84153; G0103